=== PATIENT | male | born 1990 | race Caucasian/White ===

== ENCOUNTER 2020-04-17 14:57 | Emergency (ER) | payer BC ==
[~2020-04-17] VITALS: Ht 172.7 cm; Wt 98.0 kg
[2020-04-17 14:59] VITALS: BP 123/78
[2020-04-17] MEDS ORDERED: IBUP-1984 PO (15:52)
--- NOTE | 2020-04-17 16:21 | NUR ---
graphic technician at bedside to do ortho orders
== END 2020-04-17 16:37 | disposition home or self-care (01) ==
LOC: ER 14:58
DX: M25.532 Pain in left wrist (principal); M25.572 Pain in left ankle and joints of left foot; Z79.899 Other long term (current) drug therapy; W16.92XA Jumping or diving into unspecified water causing other injury, initial encounter; Y93.89 Activity, other specified; Y92.89 Other specified places as the place of occurrence of the external cause; Y99.8 Other external cause status
CPT/HCPCS: 29125; 73130; 99283